=== PATIENT | female | born 1985 | race Caucasian/White ===

== ENCOUNTER 2020-08-08 12:57 | Emergency (ER) | payer OTHER ==
[~2020-08-08] VITALS: Ht 162.6 cm; Wt 63.5 kg
[2020-08-08 13:03] VITALS: BP_SYST 154
[2020-08-08] MEDS ORDERED: fentaNYL CITRATE/PF 100 MCG/2 ML AMP IVP ONE (13:45)
[2020-08-08] MEDS ORDERED: NACL 0.9% 1,000 ML IV ONE (13:45)
[2020-08-08] MEDS ORDERED: ONDANSETRON HCL 4 MG/2 ML VIAL IVP ONE (13:45)
[2020-08-08] MEDS ORDERED: ETOMIDATE 20 MG/ 10 ML VIAL (AMIDATE) IVP ONE (13:45)
[2020-08-08 15:36] VITALS: BP_SYST 154
== END 2020-08-08 15:36 | disposition home or self-care (01) ==
LOC: SED 12:57
DX: S43.004A Unspecified dislocation of right shoulder joint, initial encounter (principal); Q79.60 Ehlers-Danlos syndrome, unspecified; X50.0XXA Overexertion from strenuous movement or load, initial encounter; Y93.11 Activity, swimming; Y92.89 Other specified places as the place of occurrence of the external cause; Y99.8 Other external cause status
CPT/HCPCS: 23650; 73030; 96361; 96374; 99285; J2405; J3010; J3490; J7030; 99284